=== PATIENT | male | born 1970 | race Caucasian/White ===

== ENCOUNTER 2019-01-31 22:01 | Emergency (ER) | payer SELFPAY ==
[~2019-01-31] VITALS: Ht 180 cm; Wt 187.0 kg
--- NOTE | 2019-01-31 22:29 | NUR ---
notified at this time per patients request. Pt states he needs help finding a place to stay tonight d/t missing a bus for transportation. Chaplain copeland called this RN back and states there is nothing he can do as far as resources.
[2019-01-31] MEDS ORDERED: FUROSEMIDE 40 MG (LASIX) TAB PO ONE (22:30)
[2019-01-31] MEDS ORDERED: METOLAZONE 2.5 MG (ZAROXOLYN) TAB PO ONE (22:30)
[2019-01-31] MEDS ORDERED: ACETAMINOPHEN 500 MG TAB (TYLENOL) PO ONE (22:30)
[2019-01-31] MEDS ORDERED: FURO80TA83 PO (22:34)
[2019-01-31] MEDS ORDERED: METO2.5T PO (22:34)
--- NOTE | 2019-01-31 22:34 | ED Lower Extremity ---
General Chief Complaint: Lower Extremity Stated Complaint: ABD PAIN Nursing Triage Note: Pt to [facility] via [facility] with c/o bilat LE pain d/t swelling. Pt states legs are "more swollen than usual". Pt states he has not taken his lasix today d/t not having them with him on a trip. Nursing Sepsis Screen: No Definite Risk Source: patient, EMS Exam Limitations: no limitations History of Present Illness Date Seen by Provider: Jan 31, 2019 Time Seen by Provider: 22:15 Initial Comments Patient presents to ER by EMS from the [facility] with chief complaint that he has forgotten to take his Lasix and metolazone for the past couple days. He is been onto her bus driving around going to [employer]. He says his legs feel more swollen than normal and they hurt. He typically takes tramadol for pain. He also wants some help funding a hotel to sleep tonight. He denies any fever, chest pain, shortness of breath, cough, weakness, numbness. He does not wear FOR his legs. He has not kept them elevated. He has a history of DVT and takes Eliquis daily for this. He says he has been using this routinely. Allergies and Home Medications Allergies Coded Allergies: No Known Drug Allergies (Unverified , 01/31/19) Patient Home Medication List Home Medication List Reviewed: Yes Review of Systems Constitutional: No chills, No fever EENTM: No ear discharge, No hearing loss Respiratory: No cough, No short of breath Cardiovascular: No chest pain; edema; No Hx of Intervention, No palpitations, No vascular heart diseas Gastrointestinal: No abdominal pain, No nausea, No vomiting Genitourinary: No discharge, No dysuria Musculoskeletal: No back pain, No joint pain All Other Systems Reviewed Negative Unless Noted: Yes Past Kzpxjgl-Dcyoij-Qtgtgb Hx Patient Social History Alcohol Use: Denies Use Recreational Drug Use: No Smoking Status: Never a Smoker Recent Foreign Travel: No Contact w/Someone Who Travel: No Recent Infectious Disease Expo: No Physical Exam Vital Signs Vital Signs - First Documented 01/31/19 22:06 Temp 36.8 Pulse 86 Resp 18 B/P (MAP) 125/80 (95) Pulse Ox 98 O2 Delivery Room Air Capillary Refill : Less Than 3 Seconds Height, Weight, BMI Height: '" Weight: lbs. oz. kg; 57.00 BMI Method: General Appearance: no apparent distress, obese HEENT: PERRL/EOMI, pharynx normal Neck: full range of motion, normal inspection Cardiovascular: normal peripheral pulses, regular rate, rhythm Respiratory: no respiratory distress, no accessory muscle use Legs: bilateral leg swelling (chronic bilateral lymphedema without erythema warmth or induration.) Neurologic/Psychiatric: alert, normal mood/affect, oriented x 3 Skin: normal color, warm/dry Progress/Results/Core Measures Results/Orders My Orders Orders - ETTA PATEL Metolazone Tablet (Zaroxolyn Tablet) (01/31/19 22:30) Furosemide Tablet (Lasix Tablet) (01/31/19 22:30) Vital Signs/I&O 01/31/19 22:06 Temp 36.8 Pulse 86 Resp 18 B/P (MAP) 125/80 (95) Pulse Ox 98 O2 Delivery Room Air Blood Pressure Mean: 95 POS Progress Progress Note : Time: 22:31 Progress Note Aseptic vital signs and in no acute distress. He says he does not remember to take his medications and now he has swelling. He says he spent the last day just sitting at the [employer] watching women and drinking free soda. His diet combined with not taking the medications prescribed to him has led to him having increased chronic lymphedema. We will provide him with a single dose of his meds and allow him to go. Departure Impression Primary Impression: Chronic acquired lymphedema Additional Impression: Pain in both lower legs Disposition: 01 HOME, SELF-CARE Condition: Stable Departure-Patient Inst. Decision time for Depature: 22:33 Patient Instructions: Lymphedema (DC) Add. Discharge Instructions: Please continue taking her medications as prescribed. Follow-up with primary care. All discharge instructions reviewed with patient and/or family. Voiced understanding. Scripts Metolazone (Metolazone) 2.5 Mg Tablet 2.5 MG PO DAILY for 3 Days, #3 TAB 0 Refills Prov: ETTA PATEL 01/31/19 Furosemide (Lasix) 80 Mg Tablet 80 MG PO DAILY for 3 Days, #3 TAB 0 Refills Prov: ETTA PATEL 01/31/19 ETTA PATEL Jan 31, 2019 22:34 POS
[2019-01-31 22:51] VITALS: BP 125/80
== END 2019-01-31 22:52 | disposition home or self-care (01) ==
LOC: ER 22:04
DX: I89.0 Lymphedema, not elsewhere classified (principal); Z86.718 Personal history of other venous thrombosis and embolism; Z79.01 Long term (current) use of anticoagulants
CPT/HCPCS: 99283

== ENCOUNTER 2022-06-17 16:01 | Emergency (ER) | payer SELFPAY ==
[~2022-06-17 16:01] MED LIST: FURO80TA83 PO; METO2.5T PO
--- NOTE | 2022-06-17 16:11 | ED General ---
General Chief Complaint: Dizziness/Syncope Stated Complaint: DIZZY Nursing Triage Note: PT BROUGHT IN BY [facility] WITH COMPLAINT OF DIZZINESS X 2 HOURS. STATES HAS HX OF MENIERES DISEASE AND RAN OUT OF MECLIZINE. Source of Information: Patient, EMS Exam Limitations: No Limitations History of Present Illness Date Seen by Provider: Jun 17, 2022 Time Seen by Provider: 16:00 Initial Comments 51-year-old male presents to the emergency department via EMS for dizziness. Symptoms present for the last 2 hours and he thinks they are related to Mnire's disease. Has significant longstanding history of Mnire's disease and ran out of meclizine 2 days ago. Or chills or other changes in health overall. He is mostly concerned however about's finding him a reticulocyte where he wait for him to get back to [place]. He states he caught a lung mass and somehow ended up in [facility]. He is from [place] and wishes help with transportation back. He states he has no funds whatsoever. All other systems reviewed and negative except documented per HPI. Voice recognition software was used to help create this chart Allergies and Home Medications Allergies Coded Allergies: No Known Drug Allergies (Unverified , 01/31/19) Patient Home Medication List Home Medication List Reviewed: Yes Furosemide (Lasix) 80 Mg Tablet, 80 MG PO DAILY Prescribed by: ETTA PATEL on 01/31/192233 Metolazone (Metolazone) 2.5 Mg Tablet, 2.5 MG PO DAILY Prescribed by: ETTA PATEL on 01/31/192233 Review of Systems Review of Systems Constitutional: see HPI Past Asegmzr-Lqcows-Zihjdj Hx Patient Social History Tobacco Use?: No Use of E-Cig and/or Vaping dev: No Substance use?: No Alcohol Use?: No Seasonal Allergies Seasonal Allergies: No Past Medical History Surgery/Hospitalization HX: Mnire's disease Surgeries: Yes Eye Surgery Respiratory: No Cardiac: Yes Deep Vein Thrombosis Neurological: Yes Neuropathy Genitourinary: No Gastrointestinal: No Musculoskeletal: No Endocrine: No HEENT: Yes ("legally blind") Cancer: No Psychosocial: No Integumentary: No Blood Disorders: No Family Medical History Reviewed Nursing Family Hx No Pertinent Family Hx Physical Exam Vital Signs Vital Signs - First Documented 06/17/22 16:03 Temp 37.1 Pulse 81 Resp 16 B/P (MAP) 137/80 (99) Pulse Ox 96 O2 Delivery Room Air Capillary Refill : Less Than 3 Seconds Height, Weight, BMI Height: '" Weight: lbs. oz. kg; 57.00 BMI Method: General Appearance: No Apparent Distress, WD/WN Eyes: Bilateral Eye Normal Inspection, Bilateral Eye PERRL, Bilateral Eye EOMI HEENT: Normal ENT Inspection, Pharynx Normal Neck: Full Range of Motion, Normal Inspection, Non Tender, Supple Respiratory: Chest Non Tender, Lungs Clear, Normal Breath Sounds, No Accessory Muscle Use, No Respiratory Distress Cardiovascular: Regular Rate, Rhythm, No Murmur, Normal Peripheral Pulses Gastrointestinal: Normal Bowel Sounds, No Organomegaly, No Pulsatile Mass, Non Tender, Soft Extremity: Normal Capillary Refill, Normal Inspection Neurologic/Psychiatric: Alert, Oriented x3, No Motor/Sensory Deficits, Normal 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, 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 as 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 Skin: Normal Color, Warm/Dry Progress/Results/Core Measures Suspected Sepsis SIRS Temperature: Pulse: 81 Respiratory Rate: 16 Blood Pressure 137 /80 Mean: 99 Results/Orders My Orders Orders - BRENDON WILLS DO Meclizine Tablet (Antivert Tablet) (06/17/22 16:15) Rx-Meclizine Hcl (Rx-Antivert) (06/17/22 17:00) Medications Given in ED Current Medications Medications Dose Ordered Sig/Julieta Route Start Time Stop Time Status Last Admin Dose Admin Meclizine HCl 25 mg ONCE ONCE PO 06/17/22 16:15 06/17/22 16:16 DC 06/17/22 16:16 25 MG Vital Signs/I&O 06/17/22 16:03 Temp 37.1 Pulse 81 Resp 16 B/P (MAP) 137/80 (99) Pulse Ox 96 O2 Delivery Room Air Capillary Refill : Less Than 3 Seconds Blood Pressure Mean: 99 Departure Communication (Admissions) 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 Is a [employer]. 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 He is given meclizine here and did take a pill with him. Impression Primary Impression: Mnire's disease Qualified Codes: H81.03 - Meniere's disease, bilateral Disposition: 01 HOME, SELF-CARE Condition: Stable Departure-Patient Inst. Referrals: NO,LOCAL PHYSICIAN (PCP/Family) Primary Care Physician Patient Instructions: Meniere Disease Add. Discharge Instructions: Take meclizine as prescribed as needed. Return to the emergency department for any severe concerns. The beauty culturist has paid for 1 [place]. All discharge instructions reviewed with patient and/or family. Voiced understanding. BRENDON WILLS DO Jun 17, 2022 16:11
[2022-06-17] MEDS ORDERED: MECLIZINE 25 MG (ANTIVERT) TAB PO ONE (16:15)
[2022-06-17] MEDS ORDERED: RX-MECLIZINE HCL (ANTIVERT) 25 MG TAB #4 PPK PO ONE (17:00)
[2022-06-17 17:09] VITALS: BP 135/77
== END 2022-06-17 17:20 | disposition home or self-care (01) ==
LOC: EDUNIT# 16:01 → ER 16:02
DX: H81.09 Meniere's disease, unspecified ear (principal); Z79.899 Other long term (current) drug therapy
CPT/HCPCS: 99283